=== PATIENT | male | born 1970 | race Caucasian/White ===

== ENCOUNTER 2017-11-30 07:05 | Day surgery (SDC) | payer BC ==
[~2017-11-30] VITALS: Ht 182.9 cm; Wt 105.3 kg
[2017-11-30 07:59] VITALS: BP 124/79
[2017-11-30] MEDS ORDERED: ESOM40CA PO (07:59)
[2017-11-30] MEDS ORDERED: CHOL200074 PO (07:59)
[2017-11-30] MEDS ORDERED: OLOP2.5D5 EACHEYE (07:59)
[2017-11-30] MEDS ORDERED: OLOP2.5D EACHEYE (07:59)
[2017-11-30] MEDS ORDERED: FINA5TAB4 PO (07:59)
[2017-11-30] MEDS ORDERED: DUTA0.5C PO (07:59)
[2017-11-30] MEDS ORDERED: ESOM20CA PO (07:59)
[2017-11-30] MEDS ORDERED: LACTATED RINGERS 1,000 ML IV SCH (08:06)
[2017-11-30] MEDS ORDERED: MIDAZOLAM 1 MG/ML, 2ML ONE (08:23)
[2017-11-30] MEDS ORDERED: DEXAMETHASONE 4 MG/ML, 1ML ONE (08:23)
[2017-11-30] MEDS ORDERED: CEFAZOLIN 1,000 MG ONE (08:23)
[2017-11-30] MEDS ORDERED: FENTANYL PF 100 MCG/2ML ONE (08:23)
[2017-11-30] MEDS ORDERED: ONDANSETRON 2MG/ML, 2ML ONE (08:23)
[2017-11-30] MEDS ORDERED: PROPOFOL 10 MG/ML, 20ML ONE (08:23)
[2017-11-30] MEDS ORDERED: BUPIVACAINE/PF 0.5% ONE ×2 (08:24→09:14)
[2017-11-30] MEDS ORDERED: LABETALOL 5MG/ML, 20ML IV PRN (08:30)
[2017-11-30] MEDS ORDERED: hydrALAzine 20 MG/ML, 1ML IV PRN (08:30)
[2017-11-30] MEDS ORDERED: MIDAZOLAM 1 MG/ML, 2ML IV PRN (08:30)
[2017-11-30] MEDS ORDERED: DIAZEPAM 5 MG/ML, 2ML IVPush PRN (08:30)
[2017-11-30] MEDS ORDERED: ALBUTEROL/IPRATROPIUM 2.5MG/0.5MG, 3 ML NPPB PRN (08:30)
[2017-11-30] MEDS ORDERED: PROMETHAZINE 25 MG/ML, 1ML IV PRN (08:30)
[2017-11-30] MEDS ORDERED: OXYcodone 5 MG/5 ML ORAL.SOL UDC PO PRN (08:30)
[2017-11-30] MEDS ORDERED: MEPERIDINE/PF 25MG/0.5ML IVPush PRN (08:30)
[2017-11-30] MEDS ORDERED: PROMETHAZINE 12.5 MG SUPP PR PRN (08:30)
[2017-11-30] MEDS ORDERED: ONDANSETRON 2MG/ML, 2ML IVPush PRN (08:30)
[2017-11-30] MEDS ORDERED: ACETAMINOPHEN 325 MG TABLET PO PRN (08:30)
[2017-11-30] MEDS ORDERED: FENTANYL PF 100 MCG/2ML IV PRN (08:30)
[2017-11-30] MEDS ORDERED: HYDROmorphone 1 MG/ML, 1ML IV PRN (08:30)
[2017-11-30] MEDS ORDERED: LIDOCAINE 1%, 50ML ONE (09:14)
[2017-11-30] MEDS ORDERED: EPINEPHRINE 1 MG/ML, 1ML ONE (09:14)
[2017-11-30] MEDS ORDERED: ROCURONIUM 10 MG/ML,10ML ONE (09:23)
[2017-11-30] MEDS ORDERED: SUCCINYLCHOLINE 20 MG/ML, 10ML ONE (09:23)
[2017-11-30] MEDS ORDERED: CLINDAMYCIN 150 MG/ML, 6ML ONE (10:41)
[2017-11-30] MEDS ORDERED: HYDROmorphone 2 MG/ML, 1ML ONE (10:49)
[2017-12-01] MEDS ORDERED: FINASTERIDE 5 MG TABLET PO SCH (09:00)
[2017-12-01] MEDS ORDERED: CHOLECALCIFEROL 2000 UNIT PO SCH (09:00)
[2017-12-01] MEDS ORDERED: (Esomeprazole Magnesium** (Nexium**) 40 MG) PO SCH (09:00)
[2017-12-01] MEDS ORDERED: ESOMEPRAZOLE MAGNESIUM 20 MG PO SCH (09:00)
[2017-12-01] MEDS ORDERED: DUTASTERIDE 0.5 MG CAPSULE PO SCH (09:00)
[2017-12-01] MEDS ORDERED: OLOPATADINE HCL EACHEYE SCH ×2 (09:00)
== END 2017-11-30 15:30 | disposition home or self-care (01) ==
LOC: OUT 07:05
PROVIDERS: ATTEND Orthopaedic Surgery
DX: S46.011A Strain of muscle(s) and tendon(s) of the rotator cuff of right shoulder, initial encounter (principal); S43.431A Superior glenoid labrum lesion of right shoulder, initial encounter; S43.081A Other subluxation of right shoulder joint, initial encounter; M75.41 Impingement syndrome of right shoulder; M19.011 Primary osteoarthritis, right shoulder; M65.811 Other synovitis and tenosynovitis, right shoulder; Z88.8 Allergy status to other drugs, medicaments and biological substances; Z91.041 Radiographic dye allergy status; N40.0 Benign prostatic hyperplasia without lower urinary tract symptoms; K21.9 Gastro-esophageal reflux disease without esophagitis; Z98.890 Other specified postprocedural states; X58.XXXA Exposure to other specified factors, initial encounter; Y93.89 Activity, other specified; Y92.89 Other specified places as the place of occurrence of the external cause; Y99.8 Other external cause status
CPT/HCPCS: 23430; 29822; 29824; 29826; 29827; C1713; J0171; J0330; J0690; J1100; J1170; J2250; J2405; J2704; J3010; J3490